=== PATIENT | male | born 1985 | race Caucasian/White ===

== ENCOUNTER 2021-06-16 21:13 | Emergency (ER) | payer BC, OTHER ==
[2021-06-16 21:27] VITALS: BP 152/83; PULSE 86; TEMP 98.7; BMI 26.4
[2021-06-16] MEDS ORDERED: LIDOCAINE PATCH REMOVAL MC SCH (22:00)
[2021-06-16] MEDS ORDERED: METHOCARBAMOL 500 MG TABLET PO ONE (22:18)
[2021-06-16] MEDS ORDERED: KETOROLAC TROMETHAMINE 30 MG/1 ML VIAL IM ONE (22:18)
[2021-06-16] MEDS ORDERED: LIDOCAINE 5% TOPICAL PATCH TP ONE (22:19)
[2021-06-16] MEDS ORDERED: LIDOCAINE 5% TOPICAL PATCH ONE (22:22)
[2021-06-16] MEDS ORDERED: KETOROLAC TROMETHAMINE 60 MG/2 ML VIAL ONE (22:22)
[2021-06-16] MEDS ORDERED: METHOCARBAMOL 500 MG TABLET ONE (22:24)
== END 2021-06-16 22:46 | disposition home or self-care (01) ==
LOC: JER 21:13
PROC: 3E0233Z Introduction of Anti-inflammatory into Muscle, Percutaneous Approach (ICD-10-PCS; principal; 2021-06-16)
DX: M25.512 Pain in left shoulder (principal); X50.0XXA Overexertion from strenuous movement or load, initial encounter
CPT/HCPCS: 73030-TC-LT-FY; 99284-25

== ENCOUNTER 2022-02-18 10:17 | Emergency (ER) | payer OTHER ==
[2022-02-18 10:18] VITALS: BP 125/79; PULSE 92; TEMP 97.9; BMI 25.7
[2022-02-18] MEDS ORDERED: IBUPROFEN 400 MG TABLET (FP) PO ONE ×2 (10:40→10:42)
== END 2022-02-18 11:47 | disposition home or self-care (01) ==
LOC: JERFT 10:17
DX: S46.911A Strain of unspecified muscle, fascia and tendon at shoulder and upper arm level, right arm, initial encounter (principal); X50.0XXA Overexertion from strenuous movement or load, initial encounter
CPT/HCPCS: 73030-TC-RT-FY; 99283-25

== ENCOUNTER 2022-03-24 00:05 | Emergency (ER) | payer BC, OTHER ==
[2022-03-24 00:27] VITALS: BP 138/79; PULSE 110; TEMP 98.1; BMI 25.7
[2022-03-24] MEDS ORDERED: LORazepam 2 MG/ML SDV VIAL IM ONE (02:19)
== END 2022-03-24 06:50 | disposition home or self-care (01) ==
LOC: JER 00:05
PROC: 3E023GC Introduction of Other Therapeutic Substance into Muscle, Percutaneous Approach (ICD-10-PCS; principal; 2022-03-24)
PROC: 3E023NZ Introduction of Analgesics, Hypnotics, Sedatives into Muscle, Percutaneous Approach (ICD-10-PCS; 2022-03-24)
DX: R25.9 Unspecified abnormal involuntary movements (principal); T50.905A Adverse effect of unspecified drugs, medicaments and biological substances, initial encounter
CPT/HCPCS: 99284-25

== ENCOUNTER 2022-12-08 14:07 | Emergency (ER) | payer OTHER ==
[2022-12-08 14:18] VITALS: BP 119/69; PULSE 64; RESP 18; TEMP 98.1; BMI 23.7
[2022-12-08] MEDS ORDERED: TETRACAINE 0.5% HCL 0.6ML DROPPER.BOTTLE OD ONE (15:27)
[2022-12-08] MEDS ORDERED: FLUORESCEIN NA 1 EA STRIP OD ONE (15:27)
[2022-12-08] MEDS ORDERED: FLUORESCEIN NA 1 EA STRIP ONE (15:27)
[2022-12-08] MEDS ORDERED: TETRACAINE 0.5% OPHTH SOLN 2 ML BOTTLE ONE (15:28)
== END 2022-12-08 15:58 | disposition home or self-care (01) ==
LOC: JERFT 14:07
DX: S05.02XA Injury of conjunctiva and corneal abrasion without foreign body, left eye, initial encounter (principal); W22.8XXA Striking against or struck by other objects, initial encounter
CPT/HCPCS: 99283-25

== ENCOUNTER 2024-08-13 14:12 | Emergency (ER) | payer OTHER ==
[2024-08-13 14:22] VITALS: BP 125/77; PULSE 91; RESP 17; TEMP 97.6; BMI 25.1
[2024-08-13] MEDS ORDERED: KETOROLAC TROMETHAMINE 30 MG/1 ML VIAL ONE (14:51)
[2024-08-13] MEDS ORDERED: LIDOCAINE 4% PATCH TP ONE (14:51)
[2024-08-13] MEDS: KETOROLAC TROMETHAMINE 30 MG/1 ML VIAL IM ONE (14:57)
[2024-08-13] MEDS: LIDOCAINE 5% TOPICAL PATCH TP ONE (14:57)
[2024-08-13] MEDS ORDERED: LIDOCAINE PATCH REMOVAL MC ONE (22:00)
== END 2024-08-13 15:39 | disposition home or self-care (01) ==
LOC: JERFT 14:12
PROC: 3E0133Z Introduction of Anti-inflammatory into Subcutaneous Tissue, Percutaneous Approach (ICD-10-PCS; principal; 2024-08-13)
DX: S46.911A Strain of unspecified muscle, fascia and tendon at shoulder and upper arm level, right arm, initial encounter (principal); X58.XXXA Exposure to other specified factors, initial encounter
CPT/HCPCS: 93005; 93010; 99284-25